=== PATIENT | male | born 1995 | race Caucasian/White ===

== ENCOUNTER 2017-01-25 08:34 | Emergency (ER) | payer BC ==
[~2017-01-25] VITALS: Ht 175.3 cm; Wt 94.0 kg
[2017-01-25 08:48] VITALS: TEMP 36.6; Ht 175.3 cm; Wt 94.0 kg
[2017-01-25] MEDS ORDERED: ONDANSETRON INJ 2 MG/ML 2 ML VIAL IV STA (08:52)
[2017-01-25] MEDS ORDERED: SODIUM CHLORIDE 0.9% 1000ML 1,000 ML IV STA (08:52)
[2017-01-25] MEDS ORDERED: MoRPHine SULFATE 10 MG/ML CARP/VIAL IV STA (08:52)
[2017-01-25] MEDS ORDERED: CEFU250T15 PO (09:02)
[2017-01-25] MEDS ORDERED: METO50TA7 PO (09:02)
[2017-01-25] MEDS ORDERED: AMOX875T PO (09:02)
[2017-01-25] MEDS ORDERED: CIPR0.3S OT (09:02)
[2017-01-25 09:11] LABS: BASO % 0.4 %; BASO ABS # 0.03 K/uL (0-0.2); COMPLETE YES; HEMATOCRIT 47.5 % (42-52); IG% 0.1 %; LYMPH % 35.4 %; LYMPH ABS # 2.72 K/uL (1.2-3.4); MEAN CELL VOLUME 85.7 fL (80-100); MEAN CORPUSCULAR HEMOGLOBIN 30.9 pg (25-34); MEAN PLATELET VOLUME 10.5 fL (7.4-10.4); MONO % 8.2 %; NEUT % 52.9 %; PLATELET COUNT 220 K/uL (130-400); RED BLOOD COUNT 5.54 M/uL (4.7-6.1); WHITE BLOOD COUNT 7.68 K/uL (4.8-10.8)
[2017-01-25 09:29] LABS: ALT/SGPT 37 U/L (12-78); BLOOD UREA NITROGEN 16 mg/dl (7-18); BUN/CREATININE RATIO 14.6 (10-20); CARBON DIOXIDE 28 mmol/L (21-32); CHLORIDE 105 mmol/L (98-107); GLUCOSE 93 mg/dl (70-99); POTASSIUM 3.6 mmol/L (3.5-5.1); SODIUM 140 mmol/L (136-145)
[2017-01-25 09:32] LABS: ALKALINE PHOSPHATASE 54 U/L (45-117); AST/SGOT 19 U/L (15-37)
--- NOTE | 2017-01-25 09:52 | DIAGNOSTIC IMAGING REPORT ---
CT OF THE ABDOMEN AND PELVIS WITHOUT CONTRAST, STONE PROTOCOL CLINICAL HISTORY: Flank pain and hematuria. COMPARISON STUDY: CT of the abdomen and pelvis February 12, 2016. TECHNIQUE: Helical axial images of the abdomen and pelvis were obtained without IV or oral contrast according to renal stone protocol. A dose lowering technique was utilized adhering to the principles of ALARA. FINDINGS: Visualized portions of the lower chest demonstrate mild cardiomegaly. Several left renal calculi measure up to 3 mm. There are no ureteral calculi. Moderate left collecting system dilatation is present. There is a possible crossing vessel. The caliber of the left ureter is normal. There is no significant perinephric or periureteral infiltration. Evaluation of the remainder of the abdomen and pelvis is suboptimal on this unenhanced exam. Unenhanced images of the liver, spleen, adrenal glands and pancreas are normal. The appendix is normal. There is no lymphadenopathy or ascites. No suspicious skeletal lesions are identified. IMPRESSION: 1. Left-sided nephrolithiasis. Mild to moderate left hydronephrosis with normal caliber ureter and no ureteral calculi. The findings could reflect a recently passed calculus; however, a congenital UPJ obstruction with possible crossing vessel could appear similar. 2. Mild cardiomegaly, greater than expected for age. Electronically signed by: Cesar Rubio M.D. 01/25/2017 9:51 AM Dictated Date/Time: 01/25/2017 9:36 AM
[2017-01-25 10:53] LABS: URINE APPEARANCE CLEAR (CLEAR); URINE BILIRUBIN NEG (NEG); URINE COLOR YELLOW; URINE NITRITE NEG (NEG); URINE SPECIFIC GRAVITY 1.025 (1.000-1.030); UROBILINOGEN NEG (NEG)
[2017-01-25 11:00] LABS: MANUAL MICROSCOPIC REQUIRED? NO; REVIEW REQ? NO
[2017-01-25] MEDS ORDERED: ONDANSETRON INJ 2 MG/ML 2 ML VIAL ONE (11:29)
[2017-01-25] MEDS ORDERED: HYDR-5688 PO ×2 (11:38→14:09)
[2017-01-25] MEDS ORDERED: ONDA4TAB46 PO (11:38)
[2017-01-25] MEDS ORDERED: HYDROmorphone INJ 1 MG/ML SYR IV STA (11:46)
[2017-01-25 12:40] VITALS: BP 131/65; PULSE 72; O2SAT 96
--- NOTE | 2017-01-25 17:35 | EMERGENCY ROOM VISIT NOTE ---
ED Visit Note First contact with patient: 08:45 Chief Complaint: Flank pain. History of Present Illness: Mr. Keller is a 21 year-old white male who ambulates into the ED accompanied by male friend complaining of left quadrant abdominal pain. Historically patient reports history of left-sided kidney stones. Patient reports a acute onset of left flank pain that woke him from sleep 3 hours ago. Since that time the pain has been constant. He rates his discomfort 8/10. Pain is radiating around into the lateral aspect of the left mid quadrant area. He has not identified any aggravating or alleviating factors related to the pain. He has not taken any medications for pain prior to arrival at the hospital. Associated with his pain he reports he has been nauseated but has not vomited. Patient denies fevers, chills, sweats, skin eruptions, skin color changes, upper respiratory tract symptoms, shortness of breath, chest pain, diarrhea, constipation, rectal bleeding, black/tarry stools, urinary symptoms, hematuria, urinary burning, urinary urge, increased urinary frequency. Review of Systems: As noted above in history of present illness. All body systems were reviewed and found to be negative as noted above. Past Medical History: As previously noted, sinus tachycardia, atrial fibrillation, pyeloplasty. Current Medications: Augmentin, ciprofloxacin, Ceftin, Toprol. Allergies to Medications: Patient denies. Social History: Patient is not employed; he feels safe in his home environment; he denies tobacco use; he admits to alcohol use. Physical Examination: Vital Signs: Date Time Temp Pulse Resp B/P (MAP) Pulse Ox O2 Delivery O2 Flow Rate FiO2 01/25/17 12:40 72 16 131/65 96 01/25/17 11:31 64 16 134/66 94 Room Air 01/25/17 09:47 69 16 140/96 96 Room Air 01/25/17 08:48 36.6 86 16 170/100 98 Room Air GENERAL: 21-year-old male in moderate distress due to pain, nontoxic-appearing, afebrile and hemodynamically stable. NEUROLOGICAL: Awake, alert and oriented to person, place and time. Answering questions appropriately and following commands. Normal gait. Good hand eye coordination. SKIN: Warm, dry and pink. No soft tissue eruptions or trauma noted. HEENT: Atraumatic and normocephalic. PERRL. Sclera white and conjunctiva pink. Oral cavity moist and pink. Pharynx is nonerythematous or edematous. Speech normal. No lymphadenopathy. Trachea midline. No jugular venous distention. BACK: No tenderness over the bony spine. No CVA tenderness. THORAX: Lungs sounds are clear to auscultation and equal bilaterally with symmetrical chest wall. No wheezing, rales or rhonchi. No crepitus, tenderness , subcutaneous air or deformities noted. HEART: Regular rate and rhythm. No gallops, rubs or murmurs are appreciated. ABDOMEN: Flat, soft and nontender. Positive bowel sounds in all quadrants. No guarding, rigidity or organomegaly. EXTREMITIES: Moves all extremities well on command and with purpose. All distal neurovascular statuses are intact and equal bilaterally. ED Course: Patient is assessed as noted above. Patient's medication list was reviewed. Laboratory Testing: Test 01/25/17 08:40 01/25/17 10:30 Range/Units White Blood Count 7.68 4.8-10.8 K/uL Red Blood Count 5.54 4.7-6.1 M/uL Hemoglobin 17.1 14.0-18.0 g/dL Hematocrit 47.5 42-52 % Mean Corpuscular Volume 85.7 80-100 fL Mean Corpuscular Hemoglobin 30.9 25-34 pg Mean Corpuscular Hemoglobin Concent 36.0 32-36 g/dl Platelet Count 220 130-400 K/uL Mean Platelet Volume 10.5 7.4-10.4 fL Neutrophils (%) (Auto) 52.9 % Lymphocytes (%) (Auto) 35.4 % Monocytes (%) (Auto) 8.2 % Eosinophils (%) (Auto) 3.0 % Basophils (%) (Auto) 0.4 % Neutrophils # (Auto) 4.06 1.4-6.5 K/uL Lymphocytes # (Auto) 2.72 1.2-3.4 K/uL Monocytes # (Auto) 0.63 0.11-0.59 K/uL Eosinophils # (Auto) 0.23 0-0.5 K/uL Basophils # (Auto) 0.03 0-0.2 K/uL RDW Standard Deviation 40.9 36.4-46.3 fL RDW Coefficient of Variation 13.0 11.5-14.5 % Immature Granulocyte % (Auto) 0.1 % Immature Granulocyte # (Auto) 0.01 0.00-0.02 K/uL Sodium Level 140 136-145 mmol/L Potassium Level 3.6 3.5-5.1 mmol/L Chloride Level 105 98-107 mmol/L Carbon Dioxide Level 28 21-32 mmol/L Anion Gap 7.0 3-11 mmol/L Blood Urea Nitrogen 16 7-18 mg/dl Creatinine 1.10 0.60-1.40 mg/dl Est Creatinine Clear Calc Drug Dose 119.3 ml/min Estimated GFR () 109.9 Estimated GFR (Non- 94.8 BUN/Creatinine Ratio 14.6 10-20 Random Glucose 93 70-99 mg/dl Calcium Level 9.0 8.5-10.1 mg/dl Total Bilirubin 0.3 0.2-1 mg/dl Direct Bilirubin < 0.1 0-0.2 mg/dl Aspartate Amino Transf (AST/SGOT) 19 15-37 U/L Alanine Aminotransferase (ALT/SGPT) 37 12-78 U/L Alkaline Phosphatase 54 45-117 U/L Total Protein 7.5 6.4-8.2 gm/dl Albumin 4.0 3.4-5.0 gm/dl Lipase 133 73-393 U/L Urine Color YELLOW Urine Appearance CLEAR CLEAR Urine pH 6.0 4.5-7.5 Urine Specific [place] 1.025 1.000-1.030 Urine Protein NEG NEG Urine Glucose (UA) NEG NEG Urine Ketones NEG NEG Urine Occult Blood NEG NEG Urine Nitrite NEG NEG Urine Bilirubin NEG NEG Urine Urobilinogen NEG NEG Urine Leukocyte Esterase NEG NEG Noncontrast Abdominal/Pelvic CT: Was reviewed by myself and read by the radiologist showing a left nephrolithiasis. Mild to moderate left hydronephrosis with normal caliber ureteral and no ureteral calculus. Radiologist notes that a recently passed calculus or congenital UPJ junction obstruction could have similar appearance is. Additionally he reports mild cardiomegaly. Patient was hydrated with normal saline and he received a total of 12 mg of morphine IV and 1 mg of the Dilaudid IV for his pain and 8 mg of Zofran IV for nausea. Patient was reassessed multiple times during his stay in the emergency department. Patient's case was reviewed with Dr. Becker; we agreed on diagnostic approach , treatment, disposition and plan. Patient was educated about today's findings and instructed on his treatment plan ; he verbalizes understanding and agreement with this plan. Clinical Impression: Left-sided renal colic. Decision-Making: Initially my differential diagnosis I considered ureter calculus, pyelonephritis, constipation, perforated viscus, colitis and other causes. Disposition: Patient discharged home in stable condition accompanied by male friend; prior to departure he was reassessed and subjectively reported he was pain and symptom-free. Plan: Patient was placed on a sliding pain medication scale of ibuprofen, acetaminophen and [place]; he was given appropriate narcotic precautions and his name was checked in the state database and no red flags were noted. Patient was given additional prescription for Zofran every 6 hours as needed for nausea/vomiting. Patient was encouraged to stay well-hydrated with increased clear fluids. Patient was encouraged to follow-up with personal physician for recheck. Patient was encouraged return the ED for worsening symptoms, fevers, or any new/ concerning symptoms.
== END 2017-01-25 12:40 | disposition home or self-care (01) ==
LOC: C.EDB 08:36 → C.EDA 12:40
DX: N23 Unspecified renal colic (principal); I48.91 Unspecified atrial fibrillation; R00.0 Tachycardia, unspecified; Z79.899 Other long term (current) drug therapy